=== PATIENT | male | born 1990 | race African-American/Black ===

== ENCOUNTER 2023-04-25 07:48 | Inpatient (IN) | payer OTHER ==
[2023-04-25 08:21] LABS: Basophils % (A) 0 %; Eosinophils # (A) 0.1 k/uL (0-0.7); Eosinophils % (A) 1 %; HCT 38.5 % (39.0-53.0); Lymphocytes # (A) 0.6 k/uL (1.0-4.8); Lymphocytes % (A) 9 %; MCH 34.3 pg (25.0-35.0); MCHC 33.8 g/dL (31.0-37.0); MCV 101.4 fL (80.0-100.0); Mean Platelet Volume 8.5; Monocytes # (A) 0.2 k/uL (0-1.0); Monocytes % (A) 4 %; Neutrophils # (A) 5.3 k/uL (1.3-7.7); Neutrophils % (A) 85 %; Platelet Count 179 k/uL (150-450); RDW 12.3 % (11.5-15.5); WBC 6.2 k/uL (3.8-10.6)
[2023-04-25] MEDS ORDERED: LORazepam 2 MG/ML INJ IV PRN (08:25)
[2023-04-25] MEDS ORDERED: THIAMINE 100 MG/ML 2 ML VIAL IM STA (08:25)
[2023-04-25] MEDS ORDERED: LORazepam 2 MG/ML INJ IV STA (08:25)
--- NOTE | 2023-04-25 08:27 | ED ---
General Adult HPI - General Chief complaint: Alcohol Stated complaint: ETOH Time Seen by Provider: 04/25/23 07:51 Source: patient Mode of arrival: ambulatory - History of Present Illness Initial comments: Dictation was produced using [employer] dictation software. please excuse any grammatical, word or spelling errors. Chief Complaint: 32-year-old male presents to emergency department after seizure and fall History of Present Illness: Patient 32-year-old male he was transferred here by EMS from [facility] detox facility. He's been there since yesterday for alcohol detoxification. Patient has been drinking 1 pint of liquor daily for years. States that he has had seizure due to Patient's from alcohol abuse in the past. Patient does not recall what happened. Per EMS patient had a witnessed seizure and fall. EMS was not explained that person that witnessed the seizure was unavailable for providing history of present illness. Patient complains of neck pain. Denies any other symptoms. The ROS documented in this emergency department record has been reviewed and confirmed by me. Those systems with pertinent positive or negative responses h ave been documented in the HPI. All other systems are other negative and/or noncontributory. - Related Data Allergies Allergy/AdvReac Type Severity Reaction Status Date / Time No Known Allergies Allergy Verified 04/25/23 07:54 Review of Systems ROS Statement: Those systems with pertinent positive or pertinent negative responses have been documented in the HPI. ROS Other: All systems not noted in ROS Statement are negative. Past Medical History Past Medical History: Seizure Disorder Additional Past Medical History / Comment(s): pt report seizure hx with and without Detox (no medication) Past Surgical History: No Surgical Hx Reported Past Psychological History: Anxiety Smoking Status: Current every day smoker Past Alcohol Use History: Abuse, Daily, Heavy Past Drug Use History: None Reported General Exam - General Exam Comments Initial Comments: PHYSICAL EXAM: General Impression: Alert and oriented x3, not in acute distress, tremulous HEENT: Normocephalic atraumatic, extra-ocular movements intact, pupils equal and reactive to light bilaterally, mucous membranes moist. Cardiovascular: Heart regular rate and rhythm Chest: Able to complete full sentences, no retractions, no tachypnea Abdomen: abdomen soft, non-tender, non-distended, no organomegaly Musculoskeletal: Pulses present and equal in all extremities, no peripheral edema Motor: no focal deficits noted Neurological: CN II-XII grossly intact, no focal motor or sensory deficits noted Skin: Intact with no visualized rashes Psych: Normal affect and mood Course Vital Signs 04/25/23 07:49 Temperature 98.8 F Pulse Rate 81 Respiratory 16 Rate Blood Pressure 129/91 O2 Sat by Pulse 100 Oximetry EKG Findings - EKG Comments: EKG Findings:: My EKG interpretation: Ventricular rate 76, sinus rhythm,. And 154, QRS 19, QTc 47. No IA prolongation, no QTC prolongation, no ST or T-wave changes noted. . Overall, this EKG is unremarkable Medical Decision Making - Medical Decision Making Was pt. sent in by a medical professional or institution (, PA, COLLAR STARCHER, urgent care, hospital, or [place] health care facility...) When possible be specific @ -[facility] detox facility Did you speak to anyone other than the patient for history (EMS, parent, family, police, friend...)? What history was obtained from this source @ -No Did you review nursing and triage notes (agree or disagree)? Why? @ -I reviewed and agree with nursing and triage notes Were old charts reviewed (outside hosp., previous admission, EMS record, old EKG, old radiological studies, urgent care reports/EKG's, [place] health care facility records)? Report findings @ -No old charts were reviewed Differential Diagnosis (chest pain, altered mental status, abdominal pain women, abdominal pain men, vaginal bleeding, musculoskeletal, weakness, fever, dyspnea, syncope, headache, dizziness, GI bleed, back pain, seizure, CVA, palpatations, mental health)? @ -Differential Seizure: Recurrent seizure disorder, febrile seizure, alcohol withdrawal, stimulants, meningitis, encephalitis, intercranial hemorrhage, intracranial tumor, stroke, eclampsia, thyrotoxicosis, hypocalcemia, hyponatremia, hypernatremia, hypo magnesemia, psychogenic, this is not meant to be an all-inclusive list. EKG interpreted by me (3pts min.). @ -None done X-rays interpreted by me (1pt min.). @ -None done CT interpreted by me (1pt min.). @ -In the brain and C-spine shows no acute processes U/S interpreted by me (1pt. min.). @ -None done What testing was considered but not performed or refused? (CT, X-rays, U/S, labs)? Why? @ -None What meds were considered but not given or refused? Why? @ -None Did you discuss the management of the patient with other professionals (professionals i.e. , PA, COLLAR STARCHER, lab, RT, psych nurse, licensed social worker, publications production supervisor, teacher, patrol officer, showcase trimmer)? Give summary @ -Discussed with hospitalist for admission Was smoking cessation discussed for >3mins.? @ -No Was critical care preformed (if so, how long)? @ -No Were there social determinants of health that impacted care today? How? (Homelessness, low income, unemployed, alcoholism, drug addiction, transportation, low edu. Level, literacy, decrease access to med. care, correction, rehab)? @ -No Was there de-escalation of care discussed even if they declined (Discuss DNR or withdrawal of care, Hospice)? DNR status @ -No What co-morbidities impacted this encounter? (DM, HTN, Smoking, COPD, CAD, Cancer, CVA, ARF, Chemo, Hep., AIDS, mental health diagnosis, sleep apnea, morbid obesity)? @ -None Was patient admitted / discharged? Hospital course, mention meds given and r oute, prescriptions, significant lab abnormalities, going to OR and other pertinent info. @ -32-year-old male presents emergency Department after suffering a seizure. He is at detox facility for alcohol withdrawal. The patient's seizures secondary to alcohol withdrawal. Patient appears to have symptoms at the bedside. Vital signs stable. Patient be admitted for further care. Undiagnosed new problem with uncertain prognosis? @ -No Drug Therapy requiring intensive monitoring for toxicity (Heparin, Nitro, Insulin, Cardizem)? @ -No Were any procedures done? @ -No Diagnosis/symptom? Acute, or Chronic, or Acute on Chronic? Uncomplicated (w ithout systemic symptoms) or Complicated (systemic symptoms)? @ -EtOH Withdrawal Side effects of treatment? @ -No Exacerbation, Progression, or Severe Exacerbation? @ -No Poses a threat to life or bodily function? How? (Chest pain, USA, VT, pneumonia, PE, COPD, DKA, ARF, appy, cholecystitis, CVA, Diverticulitis, Homicidal, Suicidal, threat to staff... and all critical care pts) @ -yes - Lab Data Result diagrams: 04/25/23 08:05 04/25/23 08:05 Lab Results 04/25/23 04/25/23 04/25/23 Range/Units 08:05 08:05 08:05 WBC 6.2 (3.8-10.6) k/uL RBC 3.80 L (4.30-5.90) m/uL Hgb 13.0 (13.0-17.5) gm/dL Hct 38.5 L (39.0-53.0) % MCV 101.4 H (80.0-100.0) fL MCH 34.3 (25.0-35.0) pg MCHC 33.8 (31.0-37.0) g/dL RDW 12.3 (11.5-15.5) % Plt Count 179 (150-450) k/uL MPV 8.5 Neutrophils % 85 % Lymphocytes % 9 % Monocytes % 4 % Eosinophils % 1 % Basophils % 0 % Neutrophils # 5.3 (1.3-7.7) k/uL Lymphocytes # 0.6 L (1.0-4.8) k/uL Monocytes # 0.2 (0-1.0) k/uL Eosinophils # 0.1 (0-0.7) k/uL Basophils # 0.0 (0-0.2) k/uL PT 11.2 (10.0-12.5) sec INR 1.0 (<1.2) APTT 21.7 L (22.0-30.0) sec Sodium 135 L (137-145) mmol/L Potassium 4.2 (3.5-5.1) mmol/L Chloride 93 L (98-107) mmol/L Carbon Dioxide 26 (22-30) mmol/L Anion Gap 16 mmol/L BUN 9 (9-20) mg/dL Creatinine 0.70 (0.66-1.25) mg/dL Est GFR (CKD-EPI)AfAm >90 (>60 ml/min/1.73 sqM) Est GFR (CKD-EPI)NonAf >90 (>60 ml/min/1.73 sqM) Glucose 108 H (74-99) mg/dL Plasma Lactic Acid Yovany (0.7-2.0) mmol/L Calcium 10.4 H (8.4-10.2) mg/dL Total Bilirubin 1.4 H (0.2-1.3) mg/dL AST 51 (17-59) U/L ALT 47 (4-49) U/L Alkaline Phosphatase 76 (38-126) U/L Total Protein 8.9 H (6.3-8.2) g/dL Albumin 5.1 H (3.5-5.0) g/dL Serum Alcohol <10 mg/dL 04/25/23 Range/Units 08:05 WBC (3.8-10.6) k/uL RBC (4.30-5.90) m/uL Hgb (13.0-17.5) gm/dL Hct (39.0-53.0) % MCV (80.0-100.0) fL MCH (25.0-35.0) pg MCHC (31.0-37.0) g/dL RDW (11.5-15.5) % Plt Count (150-450) k/uL MPV Neutrophils % % Lymphocytes % % Monocytes % % Eosinophils % % Basophils % % Neutrophils # (1.3-7.7) k/uL Lymphocytes # (1.0-4.8) k/uL Monocytes # (0-1.0) k/uL Eosinophils # (0-0.7) k/uL Basophils # (0-0.2) k/uL PT (10.0-12.5) sec INR (<1.2) APTT (22.0-30.0) sec Sodium (137-145) mmol/L Potassium (3.5-5.1) mmol/L Chloride (98-107) mmol/L Carbon Dioxide (22-30) mmol/L Anion Gap mmol/L BUN (9-20) mg/dL Creatinine (0.66-1.25) mg/dL Est GFR (CKD-EPI)AfAm (>60 ml/min/1.73 sqM) Est GFR (CKD-EPI)NonAf (>60 ml/min/1.73 sqM) Glucose (74-99) mg/dL Plasma Lactic Acid Yovany 4.4 H* (0.7-2.0) mmol/L Calcium (8.4-10.2) mg/dL Total Bilirubin (0.2-1.3) mg/dL AST (17-59) U/L ALT (4-49) U/L Alkaline Phosphatase (38-126) U/L Total Protein (6.3-8.2) g/dL Albumin (3.5-5.0) g/dL Serum Alcohol mg/dL Disposition Clinical Impression: Alcohol withdrawal syndrome Disposition: ADMITTED IP TO THIS HOSP Condition: Fair Referrals: None,Stated [Primary Care Provider] - 1-2 days Decision Time: 09:37
[2023-04-25] MEDS ORDERED: SODIUM CHLORIDE 0.9% 1,000 ML IV STA (08:36)
[2023-04-25 08:42] LABS: Prothrombin Time 11.2 sec (10.0-12.5)
[2023-04-25 08:45] LABS: ALT 47 U/L (4-49); AST 51 U/L (17-59); African American GFR (CKD) >90 (>60 ml/min/1.73 sqM); Albumin 5.1 g/dL (3.5-5.0); Alcohol <10 mg/dL; Alkaline Phosphatase 76 U/L (38-126); Anion Gap 16 mmol/L; Blood Urea Nitrogen 9 mg/dL (9-20); Calcium 10.4 mg/dL (8.4-10.2); Carbon Dioxide 26 mmol/L (22-30); Chloride 93 mmol/L (98-107); Glucose 108 mg/dL (74-99); Non-African American GFR(CKD) >90 (>60 ml/min/1.73 sqM); Potassium 4.2 mmol/L (3.5-5.1); Sodium 135 mmol/L (137-145); Total Bilirubin 1.4 mg/dL (0.2-1.3); Total Protein 8.9 g/dL (6.3-8.2)
--- NOTE | 2023-04-25 08:47 | CT ---
EXAMINATION TYPE: CT brain aruna jeffrey DATE OF EXAM: 04/25/2023 COMPARISON: None HISTORY: Seizure, ETOH CT DLP: 1546.[address] Brain: Unenhanced CT of the brain was performed. The ventricles, basal cisterns and sulci overlying the cerebral convexities demonstrate a normal appe arance. There is no evidence for intracranial hemorrhage or sulcal effacement. No mass effects are seen. If symptoms persist consider MRI. Osseous calvarium is intact. IMPRESSION: No acute intracranial process CT Cervical Spine: Unenhanced CT of the cervical spine was performed with bone and soft tissue window settings submitted . Coronal and sagittal reconstruction is obtained. There is normal alignment and prevertebral soft tissues. I do not see evidence for fracture or sublu xation. No significant degenerative changes are present. The lung apices are clear. IMPRESSION: No evidence for acute fracture or subluxation of the cervical spine.
[2023-04-25 09:03] LABS: Partial Thromboplastin Time 21.7 sec (22.0-30.0)
[2023-04-25] MEDS ORDERED: NALOXONE 0.4 MG/ML 1 ML VIAL IV PRN (09:34)
[2023-04-25] MEDS: THIAMINE 100 MG TAB PO SCH ×3 (11:25→21:59)
--- NOTE | 2023-04-25 12:50 | P.HPIM ---
History of Present Illness H&P Date: 04/25/23 History of present illness; patient 32-year-old gentleman with past medical hist ory significant for alcohol Abuse, alcohol withdrawal seizures who presented to the ER from [facility] facility for a witnessed seizure and fall. Patient has been detoxing there for alcohol abuse. Patient has history of drinking alcohol around 1 pint daily for number of years. Patient was sent in for a witnessed seizure. No complaint of fecal or urine incontinence. Patient was complaining of neck pain. No weakness of any extremity. Patient denies any slurred speech. There was no complain of nausea, vomiting abdominal pain.. Because of these symptoms, patient was sent to the ER Initial lab work done in the ER showed WBC 6.2, hemoglobin 13, platelet count 171, sodium 134 potassium 4.2, BUNs 9, creatinine 0.7, lactate 4.4, bilirubin 1.4, serum alcohol less than 10 CT head negative for any acute intracranial process CT cervical spine negative for any fracture EKG done in the ER showed no ST segment depression, no T-wave inversion, slight ST segment elevation noticeable V4 and V5 Patient admitted to internal medicine service REVIEW OF SYSTEMS: CONSTITUTIONAL: No fever, no malaise, no fatigue. HEENT: No recent visual problems or hearing problems. Denied any sore throat. CARDIOVASCULAR: No chest pain, orthopnea, PND, no palpitations, no syncope. PULMONARY: No shortness of breath, no cough, no hemoptysis. GASTROINTESTINAL: No diarrhea, no nausea, no vomiting, no abdominal pain. NEUROLOGICAL: As mentioned above GENITOURINARY: Denies any burning micturition, frequency, or urgency. MUSCULOSKELETAL/RHEUMATOLOGICAL: Denies any joint pain, swelling, or any muscle pain. ENDOCRINE: Denies any polyuria or polydipsia. The rest of the 14-point review of systems is negative. PHYSICAL EXAMINATION: GENERAL: The patient is alert and oriented x3, not in any acute distress. Well developed, well nourished. HEENT: Pupils are round and equally reacting to light. EOMI. No scleral icterus. No conjunctival pallor. Normocephalic, atraumatic. No pharyngeal erythema. No thyromegaly. CARDIOVASCULAR: S1 and S2 present. No murmurs, rubs, or gallops. PULMONARY: Chest is clear to auscultation, no wheezing or crackles. ABDOMEN: Soft, nontender, nondistended, normoactive bowel sounds. No palpable organomegaly. MUSCULOSKELETAL: No joint swelling or deformity. EXTREMITIES: No cyanosis, clubbing, or pedal edema. NEUROLOGICAL: Gross neurological examination did not reveal any focal deficits. SKIN: No rashes. Assessment and plan Alcohol detox alcohol withdrawal seizure Lactic acidosis secondary to seizure Monitor vital signs Monitor CBC Monitor CMP Fall precaution Seizure precautions Continue CIWA protocol Continue High-dose thiamine and folic acid Resume home meds Labs and medication were reviewed.. Continue same treatment. Continue with symptomatic treatment. Resume home medication. Monitor labs and vitals. DVT and GI prophylaxis. Further recommendations as per clinical course of the patient Dictation was produced using [employer] dictation software. please excuse any grammatical, word or spelling errors. Past Medical History Past Medical History: Seizure Disorder Additional Past Medical History / Comment(s): pt report seizure hx with and without Detox (no medication) Past Surgical History: No Surgical Hx Reported Past Psychological History: Anxiety Smoking Status: Current every day smoker Past Alcohol Use History: Abuse, Daily, Heavy Past Drug Use History: None Reported Medications and Allergies Home Medications Medication Instructions Recorded Confirmed Type Acetaminophen [Tylenol] 650 mg PO QID PRN 04/25/23 04/25/23 History Calcium/Magnesium/Zinc/Vitamin D 1 tab PO TID 04/25/23 04/25/23 History 334/134/5mg Chlorpheniramine Maleate 4 mg PO Q4HR PRN 04/25/23 04/25/23 History [Chlor-Trimeton] Docusate [Colace] 100 mg PO BID PRN 04/25/23 04/25/23 History Folic Acid 1 mg PO DAILY 04/25/23 04/25/23 History Ibuprofen [Motrin Ib] 600 mg PO Q6H PRN 04/25/23 04/25/23 History Loperamide [Imodium] 2 - 4 mg PO QID PRN 04/25/23 04/25/23 History Melatonin 3 mg PO HS 04/25/23 04/25/23 History Multivitamins, Thera [Multivitamin 1 tab PO DAILY 04/25/23 04/25/23 History (formulary)] Thiamine [Vitamin B-1] 100 mg PO DAILY 04/25/23 04/25/23 History cloNIDine HCL [Catapres] 0.1 - 0.3 mg PO Q4H PRN 04/25/23 04/25/23 History guaiFENesin [guaiFENesin Oral 200 mg PO Q4H PRN 04/25/23 04/25/23 History Solution] ondansetron HCL [Zofran] 8 mg PO Q6H PRN 04/25/23 04/25/23 History Allergies Allergy/AdvReac Type Severity Reaction Status Date / Time No Known Allergies Allergy Verified 04/25/23 07:54 Physical Exam Vitals: Vital Signs Temp Pulse Resp BP Pulse Ox 04/25/23 07:49 98.8 F 81 16 129/91 100 Intake and Output 04/24/23 04/25/23 04/25/23 22:59 06:59 14:59 Other: Weight 77.111 kg Results CBC & Chem 7: 04/25/23 08:05 04/25/23 08:05 Labs: Abnormal Lab Results - Last 24 Hours (Table) 04/25/23 04/25/23 04/25/23 Range/Units 08:05 08:05 08:05 RBC 3.80 L (4.30-5.90) m/uL Hct 38.5 L (39.0-53.0) % MCV 101.4 H (80.0-100.0) fL Lymphocytes # 0.6 L (1.0-4.8) k/uL APTT 21.7 L (22.0-30.0) sec Sodium 135 L (137-145) mmol/L Chloride 93 L (98-107) mmol/L Glucose 108 H (74-99) mg/dL Plasma Lactic Acid Yovany (0.7-2.0) mmol/L Calcium 10.4 H (8.4-10.2) mg/dL Total Bilirubin 1.4 H (0.2-1.3) mg/dL Total Protein 8.9 H (6.3-8.2) g/dL Albumin 5.1 H (3.5-5.0) g/dL 04/25/23 Range/Units 08:05 RBC (4.30-5.90) m/uL Hct (39.0-53.0) % MCV (80.0-100.0) fL Lymphocytes # (1.0-4.8) k/uL APTT (22.0-30.0) sec Sodium (137-145) mmol/L Chloride (98-107) mmol/L Glucose (74-99) mg/dL Plasma Lactic Acid Yovany 4.4 H* (0.7-2.0) mmol/L Calcium (8.4-10.2) mg/dL Total Bilirubin (0.2-1.3) mg/dL Total Protein (6.3-8.2) g/dL Albumin (3.5-5.0) g/dL
[2023-04-25] MEDS: ACETAMINOPHEN TAB 325 MG TAB PO PRN ×2 (14:08→16:47)
[2023-04-25] MEDS: LORazepam 2 MG/ML INJ IV PRN ×3 (15:05→22:03)
[2023-04-25] MEDS: MELATONIN 3 MG TABLET PO SCH (20:26)
[2023-04-25] MEDS: IBUPROFEN 400 MG TAB PO PRN (20:26)
[2023-04-26 07:41] LABS: Amphetamine Screen,Urine Not Detected (NotDetected); Barbiturate Screen,Urine Detected (NotDetected); Benzodiazepines Screen,Urine Detected (NotDetected); Cocaine Screen,Urine Not Detected (NotDetected); Methadone Screen, Urine Not Detected (NotDetected); Opiate Screen,Urine Not Detected (NotDetected); Oxycodone Screen, Urine Not Detected (NotDetected); Phencyclidine Screen,Urine Not Detected (NotDetected); Tricyclic Antidepressant,Urine Not Detected (NotDetected); Urn Cannabinoid Scrn Not Detected (NotDetected)
[2023-04-26] MEDS: THIAMINE 100 MG TAB PO SCH ×3 (08:30→20:07)
[2023-04-26] MEDS: MULTIVITAMINS, THERA 1 EACH TAB PO SCH (08:30)
[2023-04-26] MEDS: NICOTINE 21MG/24HR PATCH TRANSDERM SCH (08:30)
[2023-04-26] MEDS: FOLIC ACID 1 MG TAB PO SCH (08:30)
[2023-04-26] MEDS ORDERED: THIAMINE 100 MG TAB PO SCH (09:00)
[2023-04-26 09:20] LABS: HCT 38.1 % (39.6-50.0); HGB 13.1 g/dL (13.0-17.0); MCHC 34.4 g/dL (32.0-37.0); NRBC Per 100 WBC 0 X 10*3/uL (0.00-0.01); Platelet Count 165 X 10*3/uL (140-440); RBC 3.85 X 10*6/uL (4.40-5.60); RDW 12.4 % (11.5-14.5); WBC 6.94 X 10*3/uL (4.50-10.00)
[2023-04-26] MEDS: IBUPROFEN 400 MG TAB PO PRN ×2 (09:58→20:07)
[2023-04-26 10:25] LABS: ALT 39 U/L (10-49); AST 36 U/L (14-35); Albumin 4.7 g/dL (3.8-4.9); Albumin/Globulin Ratio 1.52 Ratio (1.60-3.17); Alkaline Phosphatase 73 U/L (41-126); BUN/Creat Ratio 15.62 Ratio (12.00-20.00); Blood Urea Nitrogen 12.5 mg/dL (9.0-27.0); Calcium 9.9 mg/dL (8.7-10.3); Carbon Dioxide 20.5 mmol/L (21.6-31.8); Chloride 97 mmol/L (96-109); Globulin 3.1 g/dL (1.6-3.3); Glucose 87 mg/dL (70-110); Potassium 4.1 mmol/L (3.5-5.5); Sodium 134 mmol/L (135-145); Total Protein 7.8 g/dL (6.2-8.2)
--- NOTE | 2023-04-26 11:09 | P.CNNES ---
History of Present Illness Consult date: 04/25/23 Requesting physician: Placido Olson Reason for Consult: Seizures History of Present Illness: Patient is a 32-year-old male with history of alcoholism, came to the hospital by ambulance earlier today at 7:48 AM for a seizure. Patient has history of drinking regularly for last 2 years. His last drink was on 04/22/2023. He checked himself at [facility] for alcohol rehab on Sunday. He states that earlier today, he was sitting, just chilling, where the lead he was giving medications and she did not give him the Ativan because his "vitals were good", although he believes that he was shaking. Shortly after he passed out, had a seizure and woke up at the scene with EMS around him. He believes that he was out for about 5 minutes. His chest is sore, arm is sore head is hurting. He did bite his tongue but did not lose control of urine. Patient at present complaining of pain in the anterior pectoral region bilaterally, right shoulder, arms hurting, whole head is hurting, back of the head, neck is hurting. He does complain of some numbness of hands and toes but it is going on for "a while". Patient also mentions that he has history of seizures couple times in the past. The first time it was about a year ago and the other time was about couple months ago. He says that he was admitted once to a hospital in [place], and the other time at [facility]. He does not know what testing has been done. He is not very sure if those seizures were related to alcohol withdrawal, although he does believe so. Patient somehow has prescription of phenobarbital given to him from one of the admission. EMS flow sheet not available in the chart. Vital signs arrival blood pressure 129/91, pulse rate 81, temperature 98.8. Blood test shows normal WBC, with MCV elevated 101.4, PT/PTT normal, sodium 135 potassium 4.2, normal renal functions. Hepatic panel is normal, calcium 10.4. Blood alcohol level negative. EKG shows sinus rhythm. CT of the head showed no acute intracranial process. I personally review CT head, agree with the findings. CT of the cervical spine showed no evidence for acute fracture or subluxation of the cervical spine. Patient started smoking at age 19, used to smoke less than 1 pack per day, but in the last 2 years he has been smoking one pack per day. Denies any drug use or marijuana. He drinks about 1 pint of vodka every day for 2 years. He says that he lives with his brother and sister. He states that currently he is not working. Review of Systems Constitutional: Reports chills, Reports fever (little bit earlier), Reports sweats Eyes: denies blurred vision, denies diplopia, denies pain Ears: deny: decreased hearing, ear discharge Ears, nose, mouth and throat: Reports headache (Sometimes), Denies sore throat Cardiovascular: Reports chest pain, Denies shortness of breath Respiratory: Reports cough, Reports excessive sputum Gastrointestinal: Reports nausea, Denies abdominal pain, Denies diarrhea, Denies vomiting Genitourinary: Denies incontinence (somtimes when hurrying togo to bathroom), Denies urinary frequency Musculoskeletal: Reports low back pain, Reports neck pain Musculoskeletal: right: shoulder pain Integumentary: Denies pruritus, Denies rash Neurological: Reports as per HPI Psychiatric: Reports anxiety, Reports depression (Sometimes) Endocrine: Denies fatigue (Sometimes), Denies weight change Past Medical History Past Medical History: Seizure Disorder Additional Past Medical History / Comment(s): pt report seizure hx with and without Detox (no medication) Past Surgical History: No Surgical Hx Reported Past Psychological History: Anxiety Smoking Status: Current every day smoker Past Alcohol Use History: Abuse, Daily, Heavy Past Drug Use History: None Reported Medications and Allergies Home Medications Medication Instructions Recorded Confirmed Type Acetaminophen [Tylenol] 650 mg PO QID PRN 04/25/23 04/25/23 History Calcium/Magnesium/Zinc/Vitamin D 1 tab PO TID 04/25/23 04/25/23 History 334/134/5mg Chlorpheniramine Maleate 4 mg PO Q4HR PRN 04/25/23 04/25/23 History [Chlor-Trimeton] Docusate [Colace] 100 mg PO BID PRN 04/25/23 04/25/23 History Folic Acid 1 mg PO DAILY 04/25/23 04/25/23 History Ibuprofen [Motrin Ib] 600 mg PO Q6H PRN 04/25/23 04/25/23 History Loperamide [Imodium] 2 - 4 mg PO QID PRN 04/25/23 04/25/23 History Melatonin 3 mg PO HS 04/25/23 04/25/23 History Multivitamins, Thera [Multivitamin 1 tab PO DAILY 04/25/23 04/25/23 History (formulary)] Thiamine [Vitamin B-1] 100 mg PO DAILY 04/25/23 04/25/23 History cloNIDine HCL [Catapres] 0.1 - 0.3 mg PO Q4H PRN 04/25/23 04/25/23 History guaiFENesin [guaiFENesin Oral 200 mg PO Q4H PRN 04/25/23 04/25/23 History Solution] ondansetron HCL [Zofran] 8 mg PO Q6H PRN 04/25/23 04/25/23 History Allergies Allergy/AdvReac Type Severity Reaction Status Date / Time No Known Allergies Allergy Verified 04/25/23 07:54 Physical Examination - Vital Signs Vital Signs: Vital Signs Temp Pulse Resp BP Pulse Ox 04/25/23 14:47 99.2 F 04/25/23 14:02 100.4 F H 82 16 122/85 100 04/25/23 13:00 135/89 04/25/23 12:00 80 18 127/87 04/25/23 11:00 80 10 L 123/85 04/25/23 10:00 71 18 123/85 04/25/23 07:49 98.8 F 81 16 129/91 100 Intake and Output 04/25/23 04/25/23 04/25/23 06:59 14:59 22:59 Intake Total 540 Balance 540 Intake: Oral 540 Other: Weight 77.111 kg Patient is a young Afro-[place] male, in no acute distress. Patient is alert awake oriented to time place and person. Speech and language functions are normal. Patient can name and repeat very well. No aphasia or dysarthria. Attention, concentration and fund of knowledge is adequate. On cranial nerve examination, pupils are equal, round and reacting to light, visual polo are full on confrontation, with no neglect on double simultaneous stimulation. Extraocular muscles are intact with no nystagmus. Patient has a right red eye (from subconjunctival hemorrhage). Face is symmetric, tongue protrudes to the midline. Palatal elevation and sensation normal, hearing and shoulder shrug normal, facial sensation normal. On muscle strength testing, there is no pronator drift and the strength is normal in arms and legs distally and proximally. Deep tendon reflexes are symmetric 1+ at the biceps, 1+ brachioradialis, 2 at the knees, but ankles and plantars downgoing bilaterally. Sensory to touch is equal with no neglect on double simultaneous stimulation. Cerebellar function showed no ataxia for egopor-[id number] testing. No dysdiadochokinesia. No ataxia for odtq-tb-[id number] testing on either side. Tone and bulk of muscles normal. Patient has mild tremors of outstretched hands. Gait deferred.. On general examination, there is no carotid bruit or murmur, S1-S2 audible. Chest is clear on consultation. Abdomen is soft nontender. No organomegaly, bowel sounds present. Peripheral pulses are present. No peripheral edema. Results - Laboratory Findings CBC and BMP: 04/26/23 05:40 04/26/23 05:40 Abnormal Lab Findings: Abnormal Labs 04/25/23 04/25/23 04/25/23 08:05 08:05 08:05 RBC 3.80 L Hct 38.5 L MCV 101.4 H Lymphocytes # 0.6 L APTT 21.7 L Sodium 135 L Chloride 93 L Glucose 108 H Plasma Lactic Acid Yovany Calcium 10.4 H Total Bilirubin 1.4 H Total Protein 8.9 H Albumin 5.1 H 04/25/23 04/25/23 08:05 11:39 RBC Hct MCV Lymphocytes # APTT Sodium Chloride Glucose Plasma Lactic Acid Yovany 4.4 H* 2.2 H* Calcium Total Bilirubin Total Protein Albumin Assessment and Plan Assessment: * Seizure, likely due to alcohol withdrawal. Patient's last drink was 3 days prior to arrival. * History of seizure times twice in the last 1 year, also perhaps related to alcohol withdrawal although patient is not very sure. * History of alcoholism * Tobacco use * Musculoskeletal pain from seizure. Plan: * Patient's seizure likely from alcohol withdrawal. Watch for delirium tremens. * EEG evaluate for epileptiform activity * Continue thiamine, folate, multivitamin. * Recommended abstinence from alcohol and tobacco use. * Motrin 400 mg every 6 hours when necessary musculoskeletal pain. * Urine drug screen. * Patient informed of [place] state law of no driving unless seizure free for 6 months, climbing ladders, operating dangerous machinery or unsupervised swimming. * Neurology will follow. Thank you for the consult.
[2023-04-26] MEDS: LORazepam 2 MG/ML INJ IV PRN ×3 (11:25→20:08)
--- NOTE | 2023-04-26 14:06 | P.PN ---
Subjective Progress Note Date: 04/26/23 patient 32-year-old gentleman with past medical history significant for alcohol Abuse, alcohol withdrawal seizures who presented to the ER from [facility] facility for a witnessed seizure and fall. Patient has been detoxing there for alcohol abuse. Patient has history of drinking alcohol around 1 pint daily for number of years. Patient was sent in for a witnessed seizure. No complaint of fecal or urine incontinence. Patient was complaining of neck pain. No weakness of any extremity. Patient denies any slurred speech. There was no complain of nausea, vomiting abdominal pain.. Because of these symptoms, patient was sent to the ER Initial lab work done in the ER showed WBC 6.2, hemoglobin 13, platelet count 171, sodium 134 potassium 4.2, BUNs 9, creatinine 0.7, lactate 4.4, bilirubin 1.4, serum alcohol less than 10 CT head negative for any acute intracranial process CT cervical spine negative for any fracture EKG done in the ER showed no ST segment depression, no T-wave inversion, slight ST segment elevation noticeable V4 and V5 Patient admitted to internal medicine service 04/26. Patient seen and examined. No further episodes of seizures. Patient CIWA scores have been low. EEG pending REVIEW OF SYSTEMS: CONSTITUTIONAL: No fever, no malaise,. CARDIOVASCULAR: No chest pain, no palpitations, no syncope. PULMONARY: No shortness of breath, no cough, GASTROINTESTINAL: No diarrhea, no nausea, no vomiting, no abdominal pain. NEUROLOGICAL: No headaches, no weakness, PHYSICAL EXAMINATION: GENERAL: The patient is alert and oriented x3, not in any acute distress. Well developed, well nourished. HEENT: Pupils are round and equally reacting to light. EOMI. No scleral icterus. No conjunctival pallor. Normocephalic, atraumatic. No pharyngeal erythema. No thyromegaly. CARDIOVASCULAR: S1 and S2 present. No murmurs, rubs, or gallops. PULMONARY: Chest is clear to auscultation, no wheezing or crackles. ABDOMEN: Soft, nontender, nondistended, normoactive bowel sounds. No palpable organomegaly. MUSCULOSKELETAL: No joint swelling or deformity. EXTREMITIES: No cyanosis, clubbing, or pedal edema. NEUROLOGICAL: Gross neurological examination did not reveal any focal deficits. SKIN: No rashes. Assessment and plan Alcohol detox alcohol withdrawal seizure Lactic acidosis secondary to seizure Monitor vital signs Monitor CBC Monitor CMP Fall precaution Seizure precautions Continue CIWA protocol Continue High-dose thiamine and folic acid EEG ordered Neurology following Labs and medication were reviewed.. Continue same treatment. Continue with symptomatic treatment. Resume home medication. Monitor labs and vitals. DVT and GI prophylaxis. Further recommendations as per clinical course of the patient Dictation was produced using [employer] dictation software. please excuse any grammatical, word or spelling errors. Objective - Vital Signs Vital signs: Vital Signs Temp 98.2 F 04/26/23 07:26 Pulse 69 04/26/23 08:30 Resp 18 04/26/23 08:30 BP 116/76 04/26/23 07:26 Pulse Ox 100 04/26/23 07:26 FiO2 Intake & Output 04/25/23 04/26/23 04/26/23 18:59 06:59 18:59 Intake Total 540 Balance 540 Weight 77.111 kg 77.111 kg Intake: Oral 540 Other: Voiding Method Urinal Urinal # Voids 0 # Bowel Movements 0 # Emeses 0 - Labs CBC & Chem 7: 04/26/23 05:40 04/26/23 05:40 Labs: Abnormal Lab Results - Last 24 Hours (Table) 04/26/23 04/26/23 04/26/23 Range/Units 05:40 05:40 06:40 RBC 3.85 L (4.40-5.60) X 10*6/uL Hct 38.1 L (39.6-50.0) % MCV 99.0 H (80.0-97.0) FL MCH 34.0 H (27.0-32.0) pg Sodium 134 L (135-145) mmol/L Carbon Dioxide 20.5 L (21.6-31.8) mmol/L Anion Gap 16.50 H (4.00-12.00) mmol/L AST 36 H (14-35) U/L Albumin/Globulin Ratio 1.52 L (1.60-3.17) Ratio Ur Barbiturates Screen Detected H (NotDetected) U Benzodiazepines Scrn Detected H (NotDetected)
[2023-04-26] MEDS: MELATONIN 3 MG TABLET PO SCH (20:07)
[2023-04-27] MEDS: IBUPROFEN 400 MG TAB PO PRN ×2 (06:15→14:11)
[2023-04-27] MEDS: LORazepam 2 MG/ML INJ IV PRN (06:16)
[2023-04-27 07:36] VITALS: RESP 17
[2023-04-27] MEDS ORDERED: THIAMINE 100 MG TAB PO SCH (09:00)
[2023-04-27] MEDS: MULTIVITAMINS, THERA 1 EACH TAB PO SCH (09:17)
[2023-04-27] MEDS: NICOTINE 21MG/24HR PATCH TRANSDERM SCH (09:17)
[2023-04-27] MEDS: FOLIC ACID 1 MG TAB PO SCH (09:17)
[2023-04-27] MEDS: ACETAMINOPHEN TAB 325 MG TAB PO PRN (11:09)
--- NOTE | 2023-04-27 12:29 | EEG ---
ELECTROENCEPHALOGRAM REPORT PREAMBLE: This is a 32-year-old male with seizure. EEG FINDINGS: This is a 21-channel digital EEG recorded with video component, utilizing 10/20 international system with referential and bipolar montages. The background consists of well developed, continuous low-voltage fast frequency beta activity seen in posterior head region. Background is posterior dominant, and does not seem to be clearly reactive to eye opening or closing. Intermittent muscle twitches were seen during the study. Photic driving response was not seen. Different stages of sleep were not seen. No focal or generalized epileptiform activity was seen. IMPRESSION: This is mildly abnormal EEG due to presence of excessive amount of low-voltage fast frequency beta activity suggestive of medication effect. No epileptiform activity was seen. MMODL / IJN: [id number] /
--- NOTE | 2023-04-27 12:42 | P.DS ---
Providers Date of admission: 04/25/23 09:34 Expected date of discharge: 04/27/23 Attending physician: John Ling MD Consults: 04/25/23 12:49 Consult Physician Routine Consulting Provider: Omari Smith Consult Reason/Comments: Seizures Do you want consulting provider notified?: Yes Primary care physician: Physician Nonstaff Hospital Course: Discharge diagnoses; Alcohol detox alcohol withdrawal seizure Lactic acidosis secondary to seizure Hospital course; patient 32-year-old gentleman with past medical history significant for alcohol Abuse, alcohol withdrawal seizures who presented to the ER from [facility] facility for a witnessed seizure and fall. Patient has been detoxing ther e for alcohol abuse. Patient has history of drinking alcohol around 1 pint daily for number of years. Patient was sent in for a witnessed seizure. No complaint of fecal or urine incontinence. Patient was complaining of neck pain. No weakness of any extremity. Patient denies any slurred speech. There was no complain of nausea, vomiting abdominal pain.. Because of these symptoms, patient was sent to the ER Initial lab work done in the ER showed WBC 6.2, hemoglobin 13, platelet count 171, sodium 134 potassium 4.2, BUNs 9, creatinine 0.7, lactate 4.4, bilirubin 1.4, serum alcohol less than 10 CT head negative for any acute intracranial process CT cervical spine negative for any fracture EKG done in the ER showed no ST segment depression, no T-wave inversion, slight ST segment elevation noticeable V4 and V5 Patient admitted to internal medicine service 04/26. Patient seen and examined. No further episodes of seizures. Patient CIWA scores have been low. EEG pending 04/27. Patient seen and examined. EEG negative for any seizure-like activity. Neurology cleared the patient for discharge PHYSICAL EXAMINATION: GENERAL: The patient is alert and oriented x3, not in any acute distress. Well developed, well nourished. HEENT: Pupils are round and equally reacting to light. EOMI. No scleral icterus. No conjunctival pallor. Normocephalic, atraumatic. No pharyngeal erythema. No thyromegaly. CARDIOVASCULAR: S1 and S2 present. No murmurs, rubs, or gallops. PULMONARY: Chest is clear to auscultation, no wheezing or crackles. ABDOMEN: Soft, nontender, nondistended, normoactive bowel sounds. No palpable organomegaly. MUSCULOSKELETAL: No joint swelling or deformity. EXTREMITIES: No cyanosis, clubbing, or pedal edema. NEUROLOGICAL: Gross neurological examination did not reveal any focal deficits. SKIN: No rashes. Dictation was produced using [employer] dictation software. please excuse any grammatical, word or spelling errors. Patient Condition at Discharge: Fair Plan - Discharge Summary New Discharge Prescriptions: Continue ondansetron HCL [Zofran] 8 mg PO Q6H PRN PRN Reason: Nausea Multivitamins, Thera [Multivitamin (formulary)] 1 tab PO DAILY Loperamide [Imodium] 2 - 4 mg PO QID PRN PRN Reason: Diarrhea cloNIDine HCL [Catapres] 0.1 - 0.3 mg PO Q4H PRN PRN Reason: high bp Docusate [Colace] 100 mg PO BID PRN PRN Reason: Constipation Calcium/Magnesium/Zinc/Vitamin D 334/134/5mg 1 tab PO TID Acetaminophen [Tylenol] 650 mg PO QID PRN PRN Reason: Pain Thiamine [Vitamin B-1] 100 mg PO DAILY Melatonin 3 mg PO HS Ibuprofen [Motrin Ib] 600 mg PO Q6H PRN PRN Reason: Pain guaiFENesin [guaiFENesin Oral Solution] 200 mg PO Q4H PRN PRN Reason: Cough Folic Acid 1 mg PO DAILY Chlorpheniramine Maleate [Chlor-Trimeton] 4 mg PO Q4HR PRN PRN Reason: Allergy Symptoms Discharge Medication List Acetaminophen [Tylenol] 650 mg PO QID PRN 04/25/23 [History] Calcium/Magnesium/Zinc/Vitamin D 334/134/5mg 1 tab PO TID 04/25/23 [History] Chlorpheniramine Maleate [Chlor-Trimeton] 4 mg PO Q4HR PRN 04/25/23 [History] Docusate [Colace] 100 mg PO BID PRN 04/25/23 [History] Folic Acid 1 mg PO DAILY 04/25/23 [History] Ibuprofen [Motrin Ib] 600 mg PO Q6H PRN 04/25/23 [History] Loperamide [Imodium] 2 - 4 mg PO QID PRN 04/25/23 [History] Melatonin 3 mg PO HS 04/25/23 [History] Multivitamins, Thera [Multivitamin (formulary)] 1 tab PO DAILY 04/25/23 [History] Thiamine [Vitamin B-1] 100 mg PO DAILY 04/25/23 [History] cloNIDine HCL [Catapres] 0.1 - 0.3 mg PO Q4H PRN 04/25/23 [History] guaiFENesin [guaiFENesin Oral Solution] 200 mg PO Q4H PRN 04/25/23 [History] ondansetron HCL [Zofran] 8 mg PO Q6H PRN 04/25/23 [History] Follow up Appointment(s)/Referral(s): None,Stated [REFERRING] - 1-2 days Activity/Diet/Wound Care/Special Instructions: No driving for 6 months, no operating heavy machinery for six-month, no swimming alone for 6 months, no climbing ladders for 6 months Discharge Disposition: HOME SELF-CARE
[2023-04-27 12:45] VITALS: BP 132/78; PULSE 79; TEMP 98.7
--- NOTE | 2023-04-29 17:22 | P.PN ---
Subjective Progress Note Date: 04/26/23 Patient was seen for a follow-up. No further seizures. Patient is requesting melatonin to be given earlier. Objective - Vital Signs Vital signs: Vital Signs Temp 99 F 04/26/23 13:46 Pulse 100 04/26/23 13:46 Resp 16 04/26/23 13:46 BP 144/95 04/26/23 13:46 Pulse Ox 99 04/26/23 13:46 FiO2 Intake & Output 04/25/23 04/26/23 04/26/23 18:59 06:59 18:59 Intake Total 540 360 Balance 540 360 Weight 77.111 kg 77.111 kg Intake: Oral 540 360 Other: Voiding Method Urinal Urinal # Voids 0 4 # Bowel Movements 0 # Emeses 0 - Exam Normal. - Labs CBC & Chem 7: 04/26/23 05:40 04/26/23 05:40 Labs: Abnormal Lab Results - Last 24 Hours (Table) 04/26/23 04/26/23 04/26/23 Range/Units 05:40 05:40 06:40 RBC 3.85 L (4.40-5.60) X 10*6/uL Hct 38.1 L (39.6-50.0) % MCV 99.0 H (80.0-97.0) FL MCH 34.0 H (27.0-32.0) pg Sodium 134 L (135-145) mmol/L Carbon Dioxide 20.5 L (21.6-31.8) mmol/L Anion Gap 16.50 H (4.00-12.00) mmol/L AST 36 H (14-35) U/L Albumin/Globulin Ratio 1.52 L (1.60-3.17) Ratio Ur Barbiturates Screen Detected H (NotDetected) U Benzodiazepines Scrn Detected H (NotDetected) Assessment and Plan Assessment: * Seizure, likely due to alcohol withdrawal. Patient's last drink was 3 days prior to arrival. * History of seizure times twice in the last 1 year, also perhaps related to alcohol withdrawal although patient is not very sure. * History of alcoholism * Tobacco use * Musculoskeletal pain from seizure. Plan: * Patient's seizure likely from alcohol withdrawal. 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 * Continue thiamine, folate, multivitamin. * Recommended abstinence from alcohol and tobacco use. * Motrin 400 mg every 6 hours when necessary musculoskeletal pain. * Urine drug screen positive for barbiturate and benzodiazepine. * Patient informed of [place] state law of no driving unless seizure free for 6 months, climbing ladders, operating dangerous machinery or unsupervised swimming.
== END 2023-04-27 15:43 | disposition other institution (70) | DRG 775 ==
LOC: EC 07:48 → 5NMEDONC 09:34
PROVIDERS: ADMIT Internal Medicine; ATTEND Internal Medicine
DX: F10.239 Alcohol dependence with withdrawal, unspecified (principal); R56.9 Unspecified convulsions; E87.20 Acidosis, unspecified; R07.89 Other chest pain; R51.9 Headache, unspecified; M25.511 Pain in right shoulder; W18.30XA Fall on same level, unspecified, initial encounter; F41.9 Anxiety disorder, unspecified; F17.210 Nicotine dependence, cigarettes, uncomplicated; F32.A Depression, unspecified; K59.00 Constipation, unspecified
CPT/HCPCS: 36415; 70450; 72125; 80053; 80306; 80320; 83605; 84484; 85025; 85027; 85610; 85730; 93005; 95816; 96361; 96372; 96374; 96376; 99285

== ENCOUNTER 2023-05-02 14:11 | Emergency (ER) | payer OTHER ==
--- NOTE | 2023-05-02 14:17 | ED ---
General Adult HPI - General Source: RN notes reviewed <Carine Carmichael - Last Filed: 05/02/23 14:15> - General Source: patient, RN notes reviewed Mode of arrival: ambulatory Limitations: no limitations <Jamee Reis - Last Filed: 05/03/23 02:18> - General Stated complaint: Hiccups,Vomiting Time Seen by Provider: 05/02/23 14:15 - History of Present Illness Initial comments: 32 year old male with past medical history of alcohol abuse presents to the nearest emergency department with a chief complaint of generalized fatigue and hiccups. Patient reports increased anxiety. (Carine Camrichael) 32-year-old male presents to the emergency department for evaluation of generalized fatigue, hiccups, nausea, vomiting. He states that the hiccups have since subsided. Patient reports that he was admitted to the hospital about one week ago for alcohol withdrawal seizures. He states that since then these symptoms have been going on. He denies fever, chills. Denies shortness of breath. (Jamee Reis) - Related Data Home Medications Medication Instructions Recorded Confirmed Acetaminophen [Tylenol] 650 mg PO QID PRN 04/25/23 04/25/23 Calcium/Magnesium/Zinc/Vitamin D 1 tab PO TID 04/25/23 04/25/23 334/134/5mg Chlorpheniramine Maleate 4 mg PO Q4HR PRN 04/25/23 04/25/23 [Chlor-Trimeton] Docusate [Colace] 100 mg PO BID PRN 04/25/23 04/25/23 Folic Acid 1 mg PO DAILY 04/25/23 04/25/23 Ibuprofen [Motrin Ib] 600 mg PO Q6H PRN 04/25/23 04/25/23 Loperamide [Imodium] 2 - 4 mg PO QID PRN 04/25/23 04/25/23 Melatonin 3 mg PO HS 04/25/23 04/25/23 Multivitamins, Thera [Multivitamin 1 tab PO DAILY 04/25/23 04/25/23 (formulary)] Thiamine [Vitamin B-1] 100 mg PO DAILY 04/25/23 04/25/23 cloNIDine HCL [Catapres] 0.1 - 0.3 mg PO Q4H PRN 04/25/23 04/25/23 guaiFENesin [guaiFENesin Oral 200 mg PO Q4H PRN 04/25/23 04/25/23 Solution] ondansetron HCL [Zofran] 8 mg PO Q6H PRN 04/25/23 04/25/23 Allergies Allergy/AdvReac Type Severity Reaction Status Date / Time No Known Allergies Allergy Verified 05/02/23 14:57 Review of Systems ROS Other: All systems not noted in ROS Statement are negative. <Carine Carmichael - Last Filed: 05/02/23 14:15> ROS Other: All systems not noted in ROS Statement are negative. <Jamee Reis - Last Filed: 05/03/23 02:18> ROS Statement: Those systems with pertinent positive or pertinent negative responses have been documented in the HPI. Past Medical History Past Medical History: Seizure Disorder Additional Past Medical History / Comment(s): pt report seizure hx with and without Detox (no medication) History of Any Multi-Drug Resistant Organisms: None Reported Past Surgical History: No Surgical Hx Reported Past Psychological History: Anxiety Smoking Status: Current every day smoker Past Alcohol Use History: Abuse, Daily, Heavy Past Drug Use History: None Reported <AmolCarine - Last Filed: 05/02/23 14:15> General Exam <AmolCarine - Last Filed: 05/02/23 14:15> Limitations: no limitations General appearance: alert, in no apparent distress Head exam: Present: atraumatic, normocephalic, normal inspection Eye exam: Present: normal appearance, PERRL, EOMI. Absent: scleral icterus, conjunctival injection, periorbital swelling ENT exam: Present: normal exam, mucous membranes moist Neck exam: Present: normal inspection. Absent: tenderness, meningismus, lymphadenopathy Respiratory exam: Present: normal lung sounds bilaterally. Absent: respiratory distress, wheezes, rales, rhonchi, stridor Cardiovascular Exam: Present: regular rate, normal rhythm, normal heart sounds. Absent: systolic murmur, diastolic murmur, rubs, gallop, clicks GI/Abdominal exam: Present: soft, normal bowel sounds. Absent: distended, tenderness, guarding, rebound, rigid Extremities exam: Present: normal inspection, full ROM, normal capillary refill. Absent: tenderness, pedal edema, joint swelling, calf tenderness Back exam: Present: normal inspection Neurological exam: Present: alert, oriented X3 Psychiatric exam: Present: normal affect, normal mood Skin exam: Present: warm, dry, intact, normal color. Absent: rash <Jamee Reis - Last Filed: 05/03/23 02:18> - General Exam Comments Initial Comments: Visual Physical Exam Vital signs reviewed General: Well-appearing, nontoxic, no acute distress. Head: Normocephalic, atraumatic Eyes: PERRLA, EOMI ENT: Airway patent Chest: Nonlabored breathing Skin: No visual rash, normal skin tone Neuro: Alert and oriented 3 Musculoskeletal: No gross abnormalities (Carine Carmichael) Course Vital Signs 05/02/23 05/02/23 05/02/23 14:54 19:30 21:45 Temperature 99.0 F 98.9 F 99.0 F Pulse Rate 80 87 74 Respiratory 20 18 16 Rate Blood Pressure 117/77 115/68 116/58 O2 Sat by Pulse 100 98 98 Oximetry Medical Decision Making <Carine Carmichael - Last Filed: 05/02/23 14:15> <Jamee Reis - Last Filed: 05/03/23 02:18> - Medical Decision Making I performed the quick note portion of this exam, verbal signature Carine ashby PA-C (Carine Carmichael) Was pt. sent in by a medical professional or institution ([facility], SOFT BOARDER, urgent care, hospital, or [facility]...) When possible be specific @ -No Did you speak to anyone other than the patient for history (EMS, parent, family, police, friend...)? What history was obtained from this source @ -No Did you review nursing and triage notes (agree or disagree)? Why? @ -I reviewed and agree with nursing and triage notes Were old charts reviewed (outside hosp., previous admission, EMS record, old EKG, old radiological studies, urgent care reports/EKG's, [facility] records)? Report findings @ -No old charts were reviewed Differential Diagnosis (chest pain, altered mental status, abdominal pain women, abdominal pain men, vaginal bleeding, weakness, fever, dyspnea, syncope, head ache, dizziness, GI bleed, back pain, seizure, CVA, palpatations, mental health, musculoskeletal)? @ -not applicable EKG interpreted by me (3pts min.). @ -EKG at 1539 shows sinus rhythm rate 66, OH 162, QRS 88, QTQTc [id number] X-rays interpreted by me (1pt min.). @ -Chest x-ray shows no acute infiltrate CT interpreted by me (1pt min.). @ -None done U/S interpreted by me (1pt. min.). @ -None done What testing was considered but not performed or refused? (CT, X-rays, U/S, labs)? Why? @ -Laboratory studies ordered including CBC, CMP, coags, troponin patient refused these tests What meds were considered but not given or refused? Why? @ -None Did you discuss the management of the patient with other professionals (professionals i.e. , PA, SOFT BOARDER, lab, RT, psych nurse, outreach and education social worker, student affairs dean, teacher, business practices officer, rn field case manager)? Give summary @ -No Was smoking cessation discussed for >3mins.? @ -No Was critical care preformed (if so, how long)? @ -No Were there social determinants of health that impacted care today? How? (Homelessness, low income, unemployed, alcoholism, drug addiction, transportation, low edu. Level, literacy, decrease access to med. care, usp, rehab)? @ -No Was there de-escalation of care discussed even if they declined (Discuss DNR or withdrawal of care, Hospice)? DNR status @ -No What co-morbidities impacted this encounter? (DM, HTN, Smoking, COPD, CAD, Cancer, CVA, ARF, Chemo, Hep., AIDS, mental health diagnosis, sleep apnea, morbid obesity)? @ -None Was patient admitted / discharged? Hospital course, mention meds given and route, prescriptions, significant lab abnormalities, going to OR and other pertinent info. @ -Discharged. Patient presented to the emergency department for evaluation of generalized fatigue, pain, occasional nausea and vomiting. Chest x-ray obtained shows no acute process. EKG shows sinus rhythm with no T-wave eleva tions or inversions. Laboratory studies were recommended and patient refused these studies. Discussed that a full evaluation cannot be completed without these tests and patient is understanding. Covid, influenza, RSV negative. Patient will be discharged back to [facility]. Patient understanding and agreeable with plan. Patient stable at time of discharge. Case discussed with Dr. Hidalgo Undiagnosed new problem with uncertain prognosis? @ -No Drug Therapy requiring intensive monitoring for toxicity (Heparin, Nitro, Insulin, Cardizem)? @ -No Were any procedures done? @ -No Diagnosis/symptom? @ -nausea and vomiting Acute, or Chronic, or Acute on Chronic? @ -acute Uncomplicated (without systemic symptoms) or Complicated (systemic symptoms)? @ -uncomplicated Side effects of treatment? @ -No Exacerbation, Progression, or Severe Exacerbation? @ -No Poses a threat to life or bodily function? How? (Chest pain, USA, NH, pneumonia, PE, COPD, DKA, ARF, appy, cholecystitis, CVA, Diverticulitis, Homicidal, Suicidal, threat to staff... and all critical care pts) @ -No (Jamee Reis) - Lab Data Lab Results 05/02/23 Range/Units 14:57 Influenza Type A (PCR) Not Detected (Not Detectd) Influenza Type B (PCR) Not Detected (Not Detectd) RSV (PCR) Not Detected (Not Detectd) SARS-CoV-2 (PCR) Not Detected (Not Detectd) Disposition <Carine Carmichael - Last Filed: 05/02/23 14:15> Is patient prescribed a controlled substance at d/c from ED?: No <Jamee Reis - Last Filed: 05/03/23 02:18> Clinical Impression: Nausea & vomiting Disposition: HOME SELF-CARE Condition: Stable Instructions (If sedation given, give patient instructions): Acute Nausea and Vomiting (ED) Additional Instructions: Please follow up with your primary care provider. Return to the emergency department for new or worsening symptoms. Referrals: None,Stated [Primary Care Provider] - 1-2 days
[2023-05-02 14:58] VITALS: TEMP 99
[2023-05-02] MEDS ORDERED: LORazepam 1 MG TAB PO STA (17:39)
[2023-05-02] MEDS ORDERED: hydrOXYzine HCL 25 MG TAB PO STA (17:53)
--- NOTE | 2023-05-02 20:52 | XR ---
EXAMINATION TYPE: XR chest 2V DATE OF EXAM: 05/02/2023 COMPARISON: NONE HISTORY: Chest pain TECHNIQUE: Frontal and lateral views of the chest are obtained. FINDINGS: There is no focal air space opacity. No evidence for pneumothorax. No pleural effusion. The cardiac silhouette size is within normal limits. The osseous structures are grossly intact. IMPRESSION: 1. No acute cardiopulmonary process.
[2023-05-02] MEDS ORDERED: ONDANSETRON 4 MG ODT STARTER PACK 2 TAB BTL PO STA (21:25)
[2023-05-02 22:15] VITALS: BP 116/58; PULSE 74; RESP 16
== END 2023-05-02 21:45 | disposition home or self-care (01) ==
LOC: EC 14:11
DX: R11.2 Nausea with vomiting, unspecified (principal); F17.200 Nicotine dependence, unspecified, uncomplicated; Z20.822 Contact with and (suspected) exposure to COVID-19
CPT/HCPCS: 93005; 87636; 71046; 99284; S0119

== ENCOUNTER 2023-11-22 16:52 | Observation (INO) | payer OTHER ==
--- NOTE | 2023-11-22 17:42 | ED ---
Alcohol HPI - General Chief Complaint: Alcohol Stated Complaint: ETOH Time Seen by Provider: 11/22/23 17:13 Source: patient Mode of arrival: EMS Limitations: no limitations - History of Present Illness Initial Comments: Patient is a 33-year-old man who is sent here from [facility] with concerns about developing DTs. The patient states that he does drink about 1/5 of alcohol per day. Patient's last drink was hours ago. He states he is starting to feel very anxious and shaky. 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) Previous Visits for Alcohol Intoxication?: Yes Recent Trauma: No Associated Symptoms: other Chronic Alcohol Use: Yes - Related Data Home Medications Medication Instructions Recorded Confirmed Calcium Carbonate [Tums] 500 mg PO TID 11/22/23 11/22/23 Gabapentin 300 mg PO TID 11/22/23 11/22/23 Ibuprofen [Motrin Ib] 600 mg PO Q6H PRN 11/22/23 11/22/23 Omeprazole 20 mg PO DAILY 11/22/23 11/22/23 Propranolol [Inderal] 20 mg PO BID 11/22/23 11/22/23 busPIRone HCl [Buspar] 10 mg PO BID 11/22/23 11/22/23 levETIRAcetam [Keppra] 500 mg PO BID 11/22/23 11/22/23 Allergies Allergy/AdvReac Type Severity Reaction Status Date / Time No Known Allergies Allergy Verified 11/22/23 20:22 Review of Systems ROS Statement: Those systems with pertinent positive or pertinent negative responses have been documented in the HPI. ROS Other: All systems not noted in ROS Statement are negative. Constitutional: Denies: fever, chills, weakness Eyes: Denies: vision change Respiratory: Denies: cough, dyspnea Cardiovascular: Denies: chest pain, palpitations Gastrointestinal: Reports: nausea. Denies: abdominal pain, vomiting, diarrhea Genitourinary: Denies: dysuria, hematuria Musculoskeletal: Denies: back pain Skin: Denies: rash Neurological: Denies: headache, weakness Psychiatric: Reports: anxiety. Denies: depression, suicidal thoughts Past Medical History Past Medical History: Seizure Disorder Additional Past Medical History / Comment(s): pt report seizure hx with and without Detox (no medication) History of Any Multi-Drug Resistant Organisms: None Reported Past Surgical History: No Surgical Hx Reported Past Psychological History: Anxiety Smoking Status: Current every day smoker Past Alcohol Use History: Abuse, Daily, Heavy Past Drug Use History: None Reported General Exam Limitations: no limitations General appearance: alert, in no apparent distress Head exam: Present: atraumatic, normocephalic Eye exam: Present: normal appearance. Absent: scleral icterus, conjunctival injection ENT exam: Present: normal oropharynx Neck exam: Present: normal inspection Respiratory exam: Present: normal lung sounds bilaterally. Absent: respiratory distress, wheezes, rales, rhonchi, chest wall tenderness, accessory muscle use Cardiovascular Exam: Present: regular rate, normal rhythm, normal heart sounds. Absent: systolic murmur, diastolic murmur, rubs, gallop GI/Abdominal exam: Present: soft. Absent: distended, tenderness, guarding, rebound, rigid, mass Extremities exam: Present: normal inspection, normal capillary refill. Absent: pedal edema, calf tenderness Back exam: Present: normal inspection. Absent: CVA tenderness (R), CVA tenderness (L) Neurological exam: Present: alert Psychiatric exam: Present: anxious. Absent: depressed, agitated, homicidal ideation, suicidal ideation Skin exam: Present: warm, dry, intact, normal color. Absent: rash Course Vital Signs 11/22/23 11/22/23 11/22/23 17:10 19:26 21:00 Pulse Rate 86 80 Respiratory 18 18 19 Rate Blood Pressure 110/94 110/75 106/76 O2 Sat by Pulse 95 95 Oximetry 11/22/23 22:00 Pulse Rate 80 Respiratory 18 Rate Blood Pressure 111/80 O2 Sat by Pulse 96 Oximetry Medical Decision Making - Lab Data Result diagrams: 11/22/23 17:56 11/22/23 17:56 Lab Results 11/22/23 11/22/23 Range/Units 17:56 17:56 WBC 5.4 (3.8-10.6) k/uL RBC 3.96 L (4.30-5.90) m/uL Hgb 13.5 (13.0-17.5) gm/dL Hct 39.6 (39.0-53.0) % MCV 100.2 H (80.0-100.0) fL MCH 34.1 (25.0-35.0) pg MCHC 34.0 (31.0-37.0) g/dL RDW 13.7 (11.5-15.5) % Plt Count 106 L (150-450) k/uL MPV 10.9 Neutrophils % (Manual) 52 % Lymphocytes % (Manual) 43 % Monocytes % (Manual) 4 % Eosinophils % (Manual) 1 % Neutrophils # (Manual) 2.81 (1.3-7.7) k/uL Lymphocytes # (Manual) 2.32 (1.0-4.8) k/uL Monocytes # (Manual) 0.22 (0-1.0) k/uL Eosinophils # (Manual) 0.05 (0-0.7) k/uL Nucleated RBCs 0 (0-0) /100 WBC Manual Slide Review Performed Sodium 139 (137-145) mmol/L Potassium 4.4 (3.5-5.1) mmol/L Chloride 105 (98-107) mmol/L Carbon Dioxide 20 L (22-30) mmol/L Anion Gap 14 mmol/L BUN 14 (9-20) mg/dL Creatinine 0.66 (0.66-1.25) mg/dL Est GFR (CKD-EPI)AfAm >90 (>60 ml/min/1.73 sqM) Est GFR (CKD-EPI)NonAf >90 (>60 ml/min/1.73 sqM) Glucose 70 L (74-99) mg/dL Calcium 8.9 (8.4-10.2) mg/dL Total Bilirubin 1.1 (0.2-1.3) mg/dL AST 84 H (17-59) U/L ALT 72 H (4-49) U/L Alkaline Phosphatase 77 (38-126) U/L Total Protein 8.0 (6.3-8.2) g/dL Albumin 4.8 (3.5-5.0) g/dL Serum Alcohol 288 H* mg/dL Disposition Clinical Impression: Alcohol withdrawal syndrome Disposition: ADMITTED IP TO THIS HOSP Condition: Fair Is patient prescribed a controlled substance at d/c from ED?: No
[2023-11-22 18:01] LABS: HCT 39.6 % (39.0-53.0); HGB 13.5 gm/dL (13.0-17.5); MCH 34.1 pg (25.0-35.0); MCV 100.2 fL (80.0-100.0); Mean Platelet Volume 10.9; Platelet Count 106 k/uL (150-450); RBC 3.96 m/uL (4.30-5.90); RDW 13.7 % (11.5-15.5); WBC 5.4 k/uL (3.8-10.6)
[2023-11-22 18:10] LABS: ALT 72 U/L (4-49); African American GFR (CKD) >90 (>60 ml/min/1.73 sqM); Albumin 4.8 g/dL (3.5-5.0); Anion Gap 14 mmol/L; Blood Urea Nitrogen 14 mg/dL (9-20); Calcium 8.9 mg/dL (8.4-10.2); Carbon Dioxide 20 mmol/L (22-30); Chloride 105 mmol/L (98-107); Glucose 70 mg/dL (74-99); Non-African American GFR(CKD) >90 (>60 ml/min/1.73 sqM); Sodium 139 mmol/L (137-145); Total Bilirubin 1.1 mg/dL (0.2-1.3)
[2023-11-22] MEDS: LORazepam 2 MG/ML INJ IV STA (18:13)
[2023-11-22] MEDS ORDERED: LORazepam 2 MG/ML INJ IV PRN (18:13)
[2023-11-22 18:33] LABS: AST 84 U/L (17-59); Alcohol 288 mg/dL; Alkaline Phosphatase 77 U/L (38-126); Potassium 4.4 mmol/L (3.5-5.1)
[2023-11-22 18:45] LABS: Eosinophils # (M) 0.05 k/uL (0-0.7); Lymphocytes # (M) 2.32 k/uL (1.0-4.8); Monocytes # (M) 0.22 k/uL (0-1.0); Neutrophils # (M) 2.81 k/uL (1.3-7.7); Neutrophils % (M) 52 %; Nucleated Red Blood Cells 0 /100 WBC (0-0); Total Cells Counted 100
[2023-11-22] MEDS ORDERED: NALOXONE 0.4 MG/ML 1 ML VIAL IV PRN (19:32)
[2023-11-22] MEDS: SODIUM CHLORIDE 0.9% 1,000 ML IV SCH (19:51)
[2023-11-22] MEDS: FAMOTIDINE 20 MG TAB PO SCH (20:31)
[2023-11-22] MEDS: LORazepam 2 MG/ML INJ IV PRN (23:42)
[2023-11-23] MEDS: KETOROLAC 15 MG/ML 1 ML VIAL IVP PRN (05:21)
[2023-11-23] MEDS ORDERED: KETOROLAC 15 MG/ML 1 ML VIAL IVP SCH (06:00)
[2023-11-23] MEDS: chlordiazePOXIDE 25 MG CAP PO SCH ×2 (18:24→23:06)
[2023-11-23] MEDS: SODIUM CHLORIDE 0.9% 1,000 ML with MVI, ADULT NO.4 WITH VIT K 10 ML, THIAMINE 100 MG, F... IV ONE (18:24)
[2023-11-23] MEDS: LORazepam 1 MG TAB PO STA (20:56)
[2023-11-23] MEDS: ACETAMINOPHEN TAB 325 MG TAB PO PRN (20:56)
[2023-11-23] MEDS: ONDANSETRON 4 MG/2 ML VIAL IVP PRN (23:06)
--- NOTE | 2023-11-24 01:09 | P.HPIM ---
History of Present Illness H&P Date: 11/23/23 Chief Complaint: Alcohol intoxication Patient is a 33-year-old male with a known history of seizure disorder on antiepileptic medications, anxiety, currently heavy alcohol use was sent from [facility] due to concern for DTs. Patient does drink on daily basis about 1/5 of alcohol per day. Patient's last drink was about few hours before he presented to [facility]. Patient states that he has been shaky and anxious. Patient states that he had a seizure episode couple days ago and was admitted to [facility] in [place]. Patient does take antiplatelet medications currently. He wanted to detox and was looking for rehab facilities and found a spot at [facility] near [place]. He was sent back to ER from the rehab facility due to concern for DVTs and acute alcohol intoxication. Currently patient states that he is anxious and shaky. Denies any headache or dizziness. No fever no chills. No cough or sputum production. No nausea or vomiting. Patient is requesting pain medications and Ativan. Currently on IV hydration with normal saline. Laboratory data showed WBC 5.4 hemoglobin 13.5 and platelets 106 sodium 139 potassium 4.4 chloride 105 bicarb is 20 BUN 14 and creatinine 0.66 and blood sugar is 70 AST 84 ALT 72 and alk phos 77 and serum alcohol level is 288 on admission. Review of Systems Constitutional: Patient denies any fever or chills . No generalized weakness or weight loss. Abdomen: Patient denied nausea vomiting and diarrhea and abdominal pain. Cardiovascular: Patient denies any chest pain or short of breath no palpitations. Respiratory: patient denied any cough or sputum production. No shortness of breath Neurologic: Patient denied any numbness or tingling. no headache. Musculoskeletal: Patient denies any complaints of joint swelling or deformity. Skin: Negative Psychiatric: Anxiety and shakiness Endocrine: No heat or cold intolerance. No recent weight gain. Genitourinary: No dysuria or hematuria. All other 14 point ROS negative except the above Past Medical History Past Medical History: Seizure Disorder Additional Past Medical History / Comment(s): pt report seizure hx with and without Detox (no medication) History of Any Multi-Drug Resistant Organisms: None Reported Past Surgical History: No Surgical Hx Reported Past Psychological History: Anxiety Smoking Status: Current every day smoker Past Alcohol Use History: Abuse, Daily, Heavy Past Drug Use History: None Reported Medications and Allergies Home Medications Medication Instructions Recorded Confirmed Type Calcium Carbonate [Tums] 500 mg PO TID 11/22/23 11/22/23 History Gabapentin 300 mg PO TID 11/22/23 11/22/23 History Ibuprofen [Motrin Ib] 600 mg PO Q6H PRN 11/22/23 11/22/23 History Omeprazole 20 mg PO DAILY 11/22/23 11/22/23 History Propranolol [Inderal] 20 mg PO BID 11/22/23 11/22/23 History busPIRone HCl [Buspar] 10 mg PO BID 11/22/23 11/22/23 History levETIRAcetam [Keppra] 500 mg PO BID 11/22/23 11/22/23 History Allergies Allergy/AdvReac Type Severity Reaction Status Date / Time No Known Allergies Allergy Verified 11/22/23 20:22 Physical Exam Vitals: Vital Signs Temp Pulse Pulse Resp BP BP Pulse Ox 11/23/23 07:40 98.5 F 78 16 122/79 99 11/23/23 07:00 71 15 108/72 95 11/23/23 06:00 61 16 104/77 97 11/23/23 03:00 70 10 L 111/79 95 11/23/23 02:00 74 19 96/65 96 11/22/23 22:00 80 18 111/80 96 11/22/23 21:00 80 19 106/76 95 11/22/23 19:26 86 18 110/75 95 11/22/23 17:10 18 110/94 Intake and Output 11/22/23 11/23/23 11/23/23 22:59 06:59 14:59 Intake Total 534 Balance 534 Intake: Oral 534 Other: Weight 72.575 kg PHYSICAL EXAMINATION: Patient is lying in the bed awake alert but shaky and anxious. . HEENT: Normocephalic. Neck is supple. Pupils reactive. Nostrils clear. Oral cavity is moist. Neck reveals no JVD, carotid bruits, or thyromegaly. CHEST EXAMINATION: Trachea is central. Symmetrical expansion. Lung polo clear to auscultation and percussion. CARDIAC: Normal S1, S2 with no gallops. No murmurs ABDOMEN: Soft. Bowel sounds normal. No organomegaly. No abdominal bruits. Extremities: reveal no edema. No clubbing or cyanosis Neurologically awake, alert, oriented x3. Able to move all extremities.. No gross focal deficits noted Skin: No rash or skin lesions. Psychiatric: Coperative. Nonsuicidal, anxious and restless Musculoskeletal: No joint swelling or deformity. Normal range of motion. Results CBC & Chem 7: 11/24/23 03:38 11/24/23 03:38 Labs: Abnormal Lab Results - Last 24 Hours (Table) 11/22/23 11/22/23 Range/Units 17:56 17:56 RBC 3.96 L (4.30-5.90) m/uL MCV 100.2 H (80.0-100.0) fL Plt Count 106 L (150-450) k/uL Carbon Dioxide 20 L (22-30) mmol/L Glucose 70 L (74-99) mg/dL AST 84 H (17-59) U/L ALT 72 H (4-49) U/L Serum Alcohol 288 H* mg/dL Thrombosis Risk Factor Assmnt - DVT/VTE Prophylaxis DVT/VTE Prophylaxis: Pharmacologic Prophylaxis ordered Assessment and Plan Assessment: Acute alcohol intoxication Acute alcoholic hepatitis Seizure disorder patient is currently on AEDs at home Anxiety Heavy alcohol abuse GI and DVT prophylaxis with Pepcid and heparin subcu Plan: Patient will be continued on IV hydration with normal saline and replace electrolytes. Continue to monitor for alcohol withdrawal symptoms. Patient was also started on Librium 25 mg 4 times daily. Continue thiamine and multivitamins and follow-up closely. Continue the [facility] protocol Alcohol abstinence has been counseled extensively. Time with Patient: Greater than 30
[2023-11-24] MEDS: HEPARIN SODIUM,PORCINE 5,000 UNIT/ML 1 ML VIAL SQ SCH (09:42)
[2023-11-24] MEDS: LORazepam 2 MG/ML INJ IV PRN (10:15)
[2023-11-24 10:56] LABS: Basophils # (A) 0.02 X 10*3/uL (0.00-0.10); Basophils % (A) 0.4 %; Eosinophils # (A) 0.08 X 10*3/uL (0.04-0.35); Eosinophils % (A) 1.6 %; HCT 35.7 % (39.6-50.0); HGB 12.3 g/dL (13.0-17.0); Lymphocytes # (A) 1.43 X 10*3/uL (0.90-5.00); Lymphocytes % (A) 29.4 %; MCHC 34.5 g/dL (32.0-37.0); MCV 95.7 FL (80.0-97.0); Mean Platelet Volume 12.2 FL (9.5-12.2); Monocytes # (A) 0.45 X 10*3/uL (0.20-1.00); Monocytes % (A) 9.2 %; NRBC Per 100 WBC 0 X 10*3/uL (0.00-0.01); Neutrophils # (A) 2.88 X 10*3/uL (1.80-7.70); Neutrophils % (A) 59.2 %; Platelet Count 90 X 10*3/uL (140-440); RBC 3.73 X 10*6/uL (4.40-5.60); RBC Morphology Normal (Normal); RDW 13.2 % (11.5-14.5); WBC 4.87 X 10*3/uL (4.50-10.00)
[2023-11-24 12:11] VITALS: BMI 20.5
[2023-11-24 12:40] LABS: ALT 45 U/L (10-49); AST 46 U/L (14-35); Albumin 3.8 g/dL (3.8-4.9); Albumin/Globulin Ratio 1.58 Ratio (1.60-3.17); Alkaline Phosphatase 66 U/L (41-126); BUN/Creat Ratio 17.57 Ratio (12.00-20.00); Blood Urea Nitrogen 12.3 mg/dL (9.0-27.0); Calcium 8.5 mg/dL (8.7-10.3); Carbon Dioxide 21.1 mmol/L (21.6-31.8); Chloride 100 mmol/L (96-109); Globulin 2.4 g/dL (1.6-3.3); Glucose 85 mg/dL (70-110); Potassium 3.6 mmol/L (3.5-5.5); Sodium 134 mmol/L (135-145); Total Bilirubin 1.1 mg/dL (0.3-1.2); Total Protein 6.2 g/dL (6.2-8.2)
[2023-11-24] MEDS: MELATONIN 3 MG TABLET PO SCH (21:18)
[2023-11-25] MEDS: chlordiazePOXIDE 25 MG CAP PO SCH (01:24)
[2023-11-25 01:37] VITALS: RESP 16
[2023-11-25 07:15] VITALS: BP 120/83; PULSE 65; TEMP 98
[2023-11-25] MEDS: busPIRone HCl 10 MG TAB PO SCH (08:20)
[2023-11-25] MEDS: MULTIVITAMINS, THERA 1 EACH TAB PO SCH (08:20)
[2023-11-25] MEDS: GABAPENTIN 300 MG CAP PO SCH (08:21)
[2023-11-25] MEDS: levETIRAcetam 500 MG TAB PO SCH (08:21)
[2023-11-25] MEDS: THIAMINE 100 MG TAB PO SCH (08:21)
[2023-11-25] MEDS: PROPRANOLOL 20 MG TAB PO SCH (08:21)
[2023-11-25 09:40] LABS: Basophils # (A) 0.02 X 10*3/uL (0.00-0.10); Basophils % (A) 0.5 %; Eosinophils % (A) 2.5 %; HCT 33.7 % (39.6-50.0); HGB 11.6 g/dL (13.0-17.0); Lymphocytes # (A) 1.13 X 10*3/uL (0.90-5.00); Lymphocytes % (A) 28.4 %; MCH 33.8 pg (27.0-32.0); MCHC 34.4 g/dL (32.0-37.0); MCV 98.3 FL (80.0-97.0); Mean Platelet Volume 12.7 FL (9.5-12.2); Monocytes # (A) 0.31 X 10*3/uL (0.20-1.00); Monocytes % (A) 7.8 %; NRBC Per 100 WBC 0 X 10*3/uL (0.00-0.01); Neutrophils # (A) 2.41 X 10*3/uL (1.80-7.70); Neutrophils % (A) 60.5 %; Platelet Count 81 X 10*3/uL (140-440); RBC 3.43 X 10*6/uL (4.40-5.60); RDW 13.2 % (11.5-14.5); WBC 3.98 X 10*3/uL (4.50-10.00)
[2023-11-25 10:03] LABS: BUN/Creat Ratio 12.33 Ratio (12.00-20.00); Blood Urea Nitrogen 7.4 mg/dL (9.0-27.0); Calcium 8.3 mg/dL (8.7-10.3); Chloride 103 mmol/L (96-109); Glucose 86 mg/dL (70-110); Potassium 3.7 mmol/L (3.5-5.5); Sodium 135 mmol/L (135-145)
[2023-11-25] MEDS: LORazepam 0.5 MG TAB PO PRN (14:00)
== END 2023-11-25 14:45 | disposition home or self-care (01) ==
LOC: EC 16:52 → 6NMEDSUR 19:34
PROVIDERS: ADMIT Hospitalist; ATTEND Hospitalist
DX: F10.129 Alcohol abuse with intoxication, unspecified (principal); Y90.8 Blood alcohol level of 240 mg/100 ml or more; F17.200 Nicotine dependence, unspecified, uncomplicated; F41.9 Anxiety disorder, unspecified; G40.909 Epilepsy, unspecified, not intractable, without status epilepticus; K70.10 Alcoholic hepatitis without ascites
CPT/HCPCS: 96376 ×4; 96361 ×3; 96366 ×3; 96372 ×2; 96365; 96367; 96375 ×2; 99285; 36415; 82747; 80053 ×2; 80048; 82607; 85025 ×3; G0378 ×4; G0480; J2060 ×4; J1644 ×2; J3411; J2405 ×2; J1885 ×3; 80320